=== PATIENT | male | born 1995 | race Caucasian/White ===

== ENCOUNTER 2017-06-30 19:53 | Emergency (ER) | payer BC, OTHER ==
[~2017-06-30] VITALS: Ht 180.3 cm; Wt 72.2 kg
[~2017-06-30 19:53] MED LIST: ZYRT10TA12
[2017-06-30 20:01] VITALS: BP 134/83; PULSE 109; RESP 18; TEMP 98.2; O2SAT 100
[2017-06-30] MEDS ORDERED: LORA-400 PO (20:24)
[2017-06-30] MEDS ORDERED: SODIUM CHLOR 0.9% 1000 ML INJ 1,000 ML IV SCH (20:26)
[2017-06-30] MEDS ORDERED: SODIUM CHLORIDE 0.9% FLUSH 10 ML FLUSH IV FLUSH PRN (20:30)
[2017-06-30] MEDS ORDERED: PROCHLORPERAZINE INJ 10 MG/2 ML VIAL IV PUSH ONE (20:30)
[2017-06-30 20:43] VITALS: RESP 18; O2SAT 98
[2017-06-30 20:43] LABS: BASOPHIL # 0.5 TH/MM3 (0-0.2); BASOPHIL % 3.9 % (0.0-2.0); EOSINOPHIL # 0.1 TH/MM3 (0-0.4); EOSINOPHIL % 0.4 % (0.0-4.0); HEMATOCRIT 47.6 % (39.0-51.0); HEMOGLOBIN 15.5 GM/DL (13.0-17.0); LYMPH % 7.6 % (9.0-44.0); MEAN CORPUSCULAR HEMOGLOBIN 28.4 PG (27.0-34.0); MEAN CORPUSCULAR HGB CONC 32.6 % (32.0-36.0); MEAN PLATELET VOLUME 8.2 FL (7.0-11.0); MONO % 7.5 % (0.0-8.0); NEUT % 80.6 % (16.0-70.0); PLATELET COUNT 282 TH/MM3 (150-450); RED BLOOD COUNT 5.47 MIL/MM3 (4.50-5.90); RED CELL DISTRIBUTION WIDTH 12.5 % (11.6-17.2); WHITE BLOOD COUNT 13.6 TH/MM3 (4.0-11.0)
[2017-06-30 20:51] LABS: CHLORIDE 103 MEQ/L (98-107); SODIUM (NA) 139 MEQ/L (136-145)
[2017-06-30 20:55] LABS: ALBUMIN 4.5 GM/DL (3.4-5.0); BICARBONATE 29.7 MEQ/L (21.0-32.0); BLOOD UREA NITROGEN 15 MG/DL (7-18); CALCIUM 9.1 MG/DL (8.5-10.1); GLUCOSE,RANDOM 116 MG/DL (74-106); LIPASE 139 U/L (73-393)
[2017-06-30 20:58] LABS: ALT (GPT) 16 U/L (12-78); AST (GOT) 15 U/L (15-37); GLOMERULAR FILTRATION RATE 83 ML/MIN (>89)
[2017-06-30 20:59] LABS: TOTAL BILIRUBIN ADULT 2.2 MG/DL (0.2-1.0); TOTAL PROTEIN 8.2 GM/DL (6.4-8.2)
[2017-06-30 21:01] LABS: ALKALINE PHOSPHATASE 68 U/L (45-117)
[2017-06-30 21:45] VITALS: BP 140/78; PULSE 121; RESP 18; O2SAT 95
[2017-06-30 22:11] LABS: BILIRUBIN, URINE NEG (NEG); BLOOD, URINE NEG (NEG); GLUCOSE,URINE NEG (NEG); KETONE, URINE 15 mg/dL (NEG); NITRITE,URINE NEG (NEG); PH, URINE 5.5 (5.0-8.5); URINE LEUKOCYTE ESTERASE NEG (NEG)
[2017-06-30 22:24] LABS: MUCUS URINE MOD /lpf (OCC); URINE COLOR YELLOW (YELLW/STRAW)
[2017-06-30 22:25] LABS: SQUAMOUS EPITHELIAL CELL URINE 0-5 /hpf (0-5)
[2017-06-30 23:00] VITALS: BP 113/59; PULSE 117; RESP 16; O2SAT 100
[2017-06-30] MEDS ORDERED: SODIUM CHLOR 0.9% 1000 ML INJ 1,000 ML IV ONE ×2 (23:00)
[2017-06-30] MEDS ORDERED: PROMETHAZINE INJ 25 MG/ML VIAL IM ONE (23:00)
[2017-06-30] MEDS ORDERED: DIATRIZOATE MEGLUM/DIATRIZOATE SOD 9 ML CUP ONE (23:49)
[2017-07-01 00:30] VITALS: BP 139/74; PULSE 131; RESP 16; O2SAT 100
--- NOTE | 2017-07-01 01:03 | PD ---
HPI Chief Complaint: Abdominal Pain Time Seen by Provider: 20:10 Travel History International Travel<30 days: No Contact w/Intl Traveler<30days: No Traveled to known affect area: No History of Present Illness HPI 22-year-old male arrives complaining of vomiting nausea and abdominal pain. He ran a couple miles earlier today and then about an hour after he returned from the run felt increasing abdominal pain followed by nausea and dry heaves as described. He denies fever. He notes 2 bowel movements without diarrhea and describes some constipation in the ER. There is no blood in the emesis or diarrhea. No similar prior episodes. He ate a dinner from [facility] yesterday and states it had no unusual or suspicious taste PFSH Past Medical History Asthma: Yes (CHILDHOOD SEASONAL) Diminished Hearing: No Immunizations Current: Yes Influenza Vaccination: Yes Past Surgical History Tonsillectomy: Yes ( AND ADNOIDS AT AGE 6) Social History Alcohol Use: No Tobacco Use: No Substance Use: No Allergies-Medications (Allergen,Severity, Reaction): Coded Allergies: No Known Allergies (Verified Allergy, Mild, 06/30/17) Reported Meds & Prescriptions Reported Meds & Active Scripts Active Zofran Odt (Ondansetron Odt) 4 Mg Tab 4 Mg SL Q8HR PRN Reported Claritin-D 24 HR (Loratadine-Pseudoephedrine 24 HR) 10-240 Mg Tab 1 Tab PO DAILY Review of Systems Except as stated in HPI: all other systems reviewed are Neg General / Constitutional: No: Fever Physical Exam Narrative GENERAL: Patient is 22 years old well-nourished well-developed male SKIN: Warm and dry. HEAD: Atraumatic. Normocephalic. EYES: Pupils equal and round. No scleral icterus. No injection or drainage. ENT: No nasal bleeding or discharge. Mucous membranes pink and moist. NECK: Trachea midline. No JVD. CARDIOVASCULAR: Tachycardia. Regular rhythm. RESPIRATORY: No accessory muscle use. Clear to auscultation. Breath sounds equal bilaterally. GASTROINTESTINAL: There is mild generalized tenderness. Right abdomen is more tender. MUSCULOSKELETAL: Extremities without clubbing, cyanosis, or edema. No obvious deformities. NEUROLOGICAL: Awake and alert. No obvious cranial nerve deficits. Motor grossly within normal limits. Five out of 5 muscle strength in the arms and legs. Normal speech. PSYCHIATRIC: Appropriate mood and affect; insight and judgment normal. Data Data Last Documented VS Vital Signs Date Time Temp Pulse Resp B/P (MAP) Pulse Ox O2 Delivery O2 Flow Rate FiO2 07/01/17 02:22 141 16 108/53 (71) 100 07/01/17 00:30 Room Air 06/30/17 20:01 98.2 Vital signs reviewed Orders Orders Complete Blood Count With Diff (06/30/17 20:26) Comprehensive Metabolic Panel (06/30/17 20:26) Lipase (06/30/17:) Lactic Acid (06/30/17:26) Urinalysis - C+S If Indicated (06/30/17 20:26) Iv Access Insert/Monitor (06/30/17:) Ecg Monitoring (06/30/17:) Oximetry (06/30/17:) Sodium Chlor 0.9% 1000 Ml Inj (Ns 1000 M (06/30/17 20:26) Sodium Chloride 0.9% Flush (Ns Flush) (06/30/17 20:30) Prochlorperazine Inj (Compazine Inj) (06/30/17 20:30) Sodium Chlor 0.9% 1000 Ml Inj (Ns 1000 M (06/30/17 23:00) Promethazine Inj (Phenergan Inj) (06/30/17 23:00) Sodium Chlor 0.9% 1000 Ml Inj (Ns 1000 M (06/30/17 23:00) Oral Contrast - Adult (06/30/17 22:57) Diatrizoate Liq ( Gastrocalli Liq) (06/30/17 23:49) Ct Abd/Pel W Iv Contrast(Rout) (07/01/17 01:25) Iohexol 350 Inj (Omnipaque 350 Inj) (07/01/17 01:25) Ed Discharge Order (07/01/17 02:44) Labs Laboratory Tests Test 06/30/17 20:04 06/30/17 20:35 06/30/17 21:50 Lactic Acid Level 1.3 mmol/L White Blood Count 13.6 TH/MM3 Red Blood Count 5.47 MIL/MM3 Hemoglobin 15.5 GM/DL Hematocrit 47.6 % Mean Corpuscular Volume 87.0 FL Mean Corpuscular Hemoglobin 28.4 PG Mean Corpuscular Hemoglobin Concent 32.6 % Red Cell Distribution Width 12.5 % Platelet Count 282 TH/MM3 Mean Platelet Volume 8.2 FL Neutrophils (%) (Auto) 80.6 % Lymphocytes (%) (Auto) 7.6 % Monocytes (%) (Auto) 7.5 % Eosinophils (%) (Auto) 0.4 % Basophils (%) (Auto) 3.9 % Neutrophils # (Auto) 11.0 TH/MM3 Lymphocytes # (Auto) 1.0 TH/MM3 Monocytes # (Auto) 1.0 TH/MM3 Eosinophils # (Auto) 0.1 TH/MM3 Basophils # (Auto) 0.5 TH/MM3 CBC Comment DIFF FINAL Differential Comment Blood Urea Nitrogen 15 MG/DL Creatinine 1.10 MG/DL Random Glucose 116 MG/DL Total Protein 8.2 GM/DL Albumin 4.5 GM/DL Calcium Level 9.1 MG/DL Alkaline Phosphatase 68 U/L Aspartate Amino Transf (AST/SGOT) 15 U/L Alanine Aminotransferase (ALT/SGPT) 16 U/L Total Bilirubin 2.2 MG/DL Sodium Level 139 MEQ/L Potassium Level 3.6 MEQ/L Chloride Level 103 MEQ/L Carbon Dioxide Level 29.7 MEQ/L Anion Gap 6 MEQ/L Estimat Glomerular Filtration Rate 83 ML/MIN Lipase 139 U/L Urine Color YELLOW Urine Turbidity CLEAR Urine pH 5.5 Urine Specific [place] 1.032 Urine Protein NEG mg/dL Urine Glucose (UA) NEG mg/dL Urine Ketones 15 mg/dL Urine Occult Blood NEG Urine Nitrite NEG Urine Bilirubin NEG Urine Leukocyte Esterase NEG Urine Squamous Epithelial Cells 0-5 /hpf Urine Mucus MOD /lpf Microscopic Urinalysis Comment CULT NOT INDICATED MDM Medical Decision Making Medical Screen Exam Complete: Yes Emergency Medical Condition: Yes Medical Record Reviewed: Yes Differential Diagnosis Gastritis, pancreatitis, appendicitis, acute cholecystitis, ascending cholangitis, AAA, perforated viscous, mesenteric ischemia, hepatitis, cystitis, hydronephrosis/hydroureter/nephroureter calculus, mesenteric adenitis, biliary colic Narrative Course CBC & BMP Diagram 06/30/17 20:35 Total Protein 8.2, Albumin 4.5, Calcium Level 9.1, Alkaline Phosphatase 68, Aspartate Amino Transf (AST/SGOT) 15, Alanine Aminotransferase (ALT/SGPT) 16, Total Bilirubin 2.2 H Last Impressions Abdomen/Pelvis CT 07/01/17 0125 Signed Impressions: Service Date/Time: Saturday, July 01, 2017 00:56 - CONCLUSION: Negative CT of the abdomen and pelvis. The cause of the patient's abdominal pain is not seen. Lexa Mcgill MD Patient has mild persistent tachycardia. He reports similar episodes of tachycardia previously and has followed with Dr. Jackson. The etiology is unclear at this time however I do not believe we need to keep the patient overnight as he is otherwise healthy 22-year-old male and he has verbalized agreement to follow-up with primary provider in [facility] tomorrow. Patient reports using Claritin and Sudafed however stopping few days prior. Diagnosis Primary Impression: Tachycardia Additional Impression: Vomiting Qualified Codes: R11.10 - Vomiting, unspecified Referrals: Primary Care Physician 2 days Med/Other Pt SpecificInfo: Prescription(s) given Scripts Ondansetron Odt (Zofran Odt) 4 Mg Tab 4 MG SL Q8HR Y for Nausea/Vomiting, #10 TAB 0 Refills Prov: Armand Salazar MD 07/01/17 Disposition: DISCHARGE HOME Condition: Stable Armand Salazar MD Jul 01, 2017 01:03
[2017-07-01] MEDS ORDERED: IOHEXOL 350 MG/ML 10 ML VIAL (for RAD DIAG) IVCONTRAST ONE (01:25)
--- NOTE | 2017-07-01 01:47 | RADRPT ---
EXAM DATE/TIME: 07/01/2017 00:56 CORRECTION Corrected on: July 01, 2017; [facility] COMPARISON: No previous studies available for comparison. INDICATIONS : Abdominal pain. IV CONTRAST: 100 cc Omnipaque 350 (iohexol) IV ORAL CONTRAST: Prescribed oral contrast ingested. RADIATION DOSE: 6.35 CTDIvol (mGy) MEDICAL HISTORY : None SURGICAL HISTORY : None. ENCOUNTER: Initial ACUITY: 1 day PAIN SCALE: 2/10 LOCATION: lower quadrant upper quadrant TECHNIQUE: Volumetric scanning of the abdomen and pelvis was performed. Using automated exposure control and ad justment of the mA and/or kV according to patient size, radiation dose was kept as low as reasonably achievable to obtain optimal diagnostic quality images. DICOM format image data is available electro nically for review and comparison. FINDINGS: LOWER LUNGS: The visualized lower lungs are clear. LIVER: Homogeneous density without lesion. There is no dilation of the biliary tree. No calcified gallston es. SPLEEN: Normal size without lesion. PANCREAS: Within normal limits. KIDNEYS: Normal in size and shape. There is no mass, stone or hydronephrosis. ADRENAL GLANDS: Within normal limits. VASCULAR: There is no aortic aneurysm. BOWEL/MESENTERY: The stomach, small bowel, and colon demonstrate no acute abnormality. There is no free intraperitone al air or fluid. The appendix appears normal. ABDOMINAL WALL: Within normal limits. RETROPERITONEUM: There are mildly prominent lymph nodes in the left periaortic region measuring up to 0.7 cm. BLADDER: The urinary bladder is mildly thickened but this is likely secondary to lack of full distention. REPRODUCTIVE: Within normal limits. INGUINAL: There is no lymphadenopathy or hernia. MUSCULOSKELETAL: There are focal sclerotic areas seen in the right femoral head. Given the patient's age, these likely represent bone islands. CONCLUSION: Negative CT of the abdomen and pelvis. The cause of the patient's abdominal pain is not seen. Lexa Mcgill MD on July 01, 2017 at 1:43 Board Certified Radiologist. This report was verified electronically. Lexa Mcgill MD on July 01, 2017 at 1:54 Board Certified Radiologist. This report was verified electronically.
[2017-07-01] MEDS ORDERED: ZOFR4TAB3 SL (02:06)
[2017-07-01 02:22] VITALS: BP 108/53
== END 2017-07-01 02:30 | disposition home or self-care (01) ==
LOC: PHED 19:53
DX: R00.0 Tachycardia, unspecified (principal); R11.2 Nausea with vomiting, unspecified
CPT/HCPCS: 74177; 80053; 81001; 83605; 83690; 85025; 96361; 96372; 96374; 99285; J0780; J2550; J7030; Q9963; Q9967